=== PATIENT | male | born 1980 | race African-American/Black ===

== ENCOUNTER 2019-06-11 19:25 | Emergency (ER) | payer SELFPAY ==
[2019-06-11] MEDS ORDERED: KETOROLAC TROMETHAMINE 60 MG/2 ML SDV IM ONE (22:46)
[2019-06-11] MEDS ORDERED: MORPHINE SULFATE 10 MG/ML INJ IM ONE (22:46)
[2019-06-11] MEDS ORDERED: DIAZEPAM 5 MG TABLET PO ONE (22:46)
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
[2019-06-11] MEDS ORDERED: LIDOCAINE 5% (700 MG) TRANSDERMAL ADH..PATCH TP SCH (23:00)
[2019-06-11] MEDS ORDERED: LIDOCAINE 5% (700 MG) TRANSDERMAL ADH..PATCH TP ONE (23:10)
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
[2019-06-12 00:17] VITALS: BP 156/95
[2019-06-12] MEDS ORDERED: LIDOCAINE 5% (700 MG) TRANSDERMAL ADH..PATCH TP SCH (10:00)
== END 2019-06-12 00:15 | disposition home or self-care (01) ==
LOC: ER 19:25
DX: M54.5 Low back pain (principal); G89.29 Other chronic pain; M54.9 Dorsalgia, unspecified; M79.10 Myalgia, unspecified site; V87.7XXA Person injured in collision between other specified motor vehicles (traffic), initial encounter
CPT/HCPCS: 99283; 96372; 72110; J1885; J2270

== ENCOUNTER 2019-07-06 19:59 | Emergency (ER) | payer OTHER ==
[2019-07-06] MEDS ORDERED: METHOCARBAMOL 750 MG TABLET PO ONE (21:46)
[2019-07-06] MEDS ORDERED: KETOROLAC TROMETHAMINE 60 MG/2 ML SDV IM ONE (21:46)
[2019-07-06] MEDS ORDERED: LIDOCAINE 5% (700 MG) TRANSDERMAL ADH..PATCH TP ONE (21:47)
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
[2019-07-06 22:12] VITALS: BP 138/66
== END 2019-07-06 22:12 | disposition home or self-care (01) ==
LOC: ER 19:59
DX: M54.5 Low back pain (principal); F17.200 Nicotine dependence, unspecified, uncomplicated
CPT/HCPCS: J1885; J3490

== ENCOUNTER 2019-07-27 23:28 | Emergency (ER) | payer OTHER ==
[2019-07-28] MEDS ORDERED: ONDANSETRON 4 MG TAB.RAPDIS PO ONE (02:29)
--- NOTE | 2019-07-28 02:32 | ER Document Report ---
HPI - HPI Time Seen by Provider: 07/28/19 02:22 Pain Level: 3 Context: Patient is a 38-year-old male that comes emergency department for chief complaint of nausea, an episode of vomiting, and generalized weakness and body aches since yesterday. He denies sore throat, difficulty breathing, cough, headache, abdominal pain. He states his kids were diagnosed with viral gastroenteritis and he thinks he might of gotten it from them. He denies recent antibiotics, suspicious foods, foreign travel. He smokes, denies any daily medications, denies any past medical history otherwise. - CONSTITUTIONAL Constitutional: DENIES: Fever, Chills - EENT EENT: DENIES: Sore Throat, Ear Pain, Eye problems - NEURO Neurology: DENIES: Headache, Weakness, Vision blurred, Dizzinesss / Vertigo - CARDIOVASCULAR Cardiovascular: DENIES: Chest pain - RESPIRATORY Respiratory: DENIES: Trouble Breathing, Coughing - GASTROINTESTINAL Gastrointestinal: DENIES: Abdominal Pain, Black / Bloody Stools - URINARY Urinary: DENIES: Dysuria, Urgency, Frequency - MUSCULOSKELETAL Musculoskeletal: DENIES: Extremity pain Past Medical History - General Information source: Patient - Social History Smoking Status: Current Every Day Smoker Frequency of alcohol use: None Drug Abuse: None Lives with: Family Family History: Reviewed & Not Pertinent Patient has suicidal ideation: No Patient has homicidal ideation: No Renal/ Medical History: Denies: Hx Peritoneal Dialysis - Immunizations Immunizations up to date: Yes Hx Diphtheria, Pertussis, Tetanus Vaccination: Yes Vertical Provider Document - CONSTITUTIONAL General Appearance: WD/WN, No Apparent Distress - INFECTION CONTROL TRAVEL OUTSIDE OF THE [place] IN LAST 30 DAYS: No - HEENT HEENT: Atraumatic, Normal ENT Exam, Normocephalic - NECK Neck: Normal Inspection - RESPIRATORY Respiratory: Breath Sounds Normal, No Respiratory Distress - CARDIOVASCULAR Cardiovascular: Regular Rate, Regular Rhythm - GI/ABDOMEN Gastrointestinal: Abdomen Soft, Abdomen Non-Tender. negative: Abdomen Tender - BACK Back: Normal Inspection - MUSCULOSKELETAL/EXTREMETIES Musculoskeletal/Extremeties: MAEW, FROM, Non-Tender - NEURO Level of Consciousness: Awake, Alert, Appropriate Motor/Sensory: No Motor Deficit, No Sensory Deficit - DERM Integumentary: Warm, Dry, No Rash Course - Re-evaluation Re-evalutation: Abdomen soft and benign. Patient well-appearing. Patient has multiple sick contacts. Accu-Chek is unremarkable. Very low suspicion of emergent underlying illness or acute abdomen. Discussed with patient, provided with nausea medication, discussed expectations, follow-up, and return precautions. Patient and family state understanding and agreement. - Vital Signs Vital signs: Temp Pulse Resp BP Pulse Ox 98.7 F 50 L 16 117/73 100 07/27/19 23:45 07/28/19 01:20 07/28/19 01:20 07/28/19 01:20 07/28/19 01:20 Discharge - Discharge Clinical Impression: Generalized weakness Vomiting Qualifiers: Vomiting type: unspecified Vomiting Intractability: non-intractable Nausea presence: with nausea Qualified Code(s): R11.2 - Nausea with vomiting, unspecified Disposition: HOME, SELF-CARE Additional Instructions: Your evaluation is most consistent with a viral gastroenteritis. This resolved with time. Take Phenergan for nausea if needed, start with bland food, drink plenty fluids and rest. Follow-up with primary care. Come back if you worsen including developing abdominal pain, uncontrolled vomiting, or any other concerning or worsening symptoms. Prescriptions: Promethazine HCl [Phenergan 25 mg Tablet] 25 mg PO Q6H PRN #15 tablet PRN Reason: Forms: Return to Work
[2019-07-28 03:10] VITALS: BP 133/89
== END 2019-07-28 03:06 | disposition home or self-care (01) ==
LOC: ER 23:28
DX: R53.1 Weakness (principal); R11.2 Nausea with vomiting, unspecified; M79.10 Myalgia, unspecified site; R51 Headache; R10.9 Unspecified abdominal pain; F17.200 Nicotine dependence, unspecified, uncomplicated
CPT/HCPCS: 82962; S0119; 99283

== ENCOUNTER 2019-09-02 22:35 | Emergency (ER) | payer SELFPAY ==
[2019-09-02 22:47] VITALS: BP 143/77
--- NOTE | 2019-09-02 23:12 | RADIOLOGY REPORT (SQ) ---
EXAM DESCRIPTION: XR SHOULDER 2 OR MORE VIEWS COMPLETED DATE/TME: 09/02/2019 22:38 CLINICAL HISTORY: 38 years, Male, bone tenderness COMPARISON: None. NUMBER OF VIEWS: 3 TECHNIQUE: 3 views right shoulder LIMITATIONS: None. FINDINGS: Negative for fracture or dislocation. Soft tissues are unremarkable IMPRESSION: Negative exam copyright 2011 [employer]- All Rights Reserved
--- NOTE | 2019-09-02 23:25 | ER Document Report ---
HPI - HPI Time Seen by Provider: 09/02/19 23:13 Pain Level: 4 Notes: Patient is a 38-year-old male with no significant past medical history presents complaining of muscle pain to his right trapezius area over the past couple days. Patient states that it feels like there is a knot in the one area. Patient states on occasion he will feel a twitch. Patient states that his work does involve him using his arms constantly. Pain does not radiate. No other injury. He has no other concerns or complaints, but is requesting a work note. Denies any headache, fever, head injury, neck pain, URI, sore throat, chest pain, palpitations, syncope, cough, shortness of breath, wheeze, dyspnea, abdominal pain, nausea/vomiting/diarrhea, urinary retention, dysuria, hematuria, loss of control of bowel or bladder, numbness/tingling, saddle anesthesia, muscle paralysis/weakness, or rash. - ROS Systems Reviewed and Negative: Yes All other systems reviewed and negative Past Medical History - Social History Smoking Status: Current Every Day Smoker Frequency of alcohol use: None Drug Abuse: None Family History: Reviewed & Not Pertinent Patient has suicidal ideation: No Patient has homicidal ideation: No Renal/ Medical History: Denies: Hx Peritoneal Dialysis - Immunizations Immunizations up to date: Yes Hx Diphtheria, Pertussis, Tetanus Vaccination: Yes Vertical Provider Document - CONSTITUTIONAL Agree With Documented VS: Yes Notes: PHYSICAL EXAMINATION: GENERAL: Well-appearing, well-nourished and in no acute distress. NECK: Normal range of motion, supple without lymphadenopathy. Non-tender. Spurling negative. No rigidity/meningismus. LUNGS: Breath sounds clear to auscultation bilaterally and equal. No wheezes rales or rhonchi. HEART: Regular rate and rhythm without murmurs, rubs, gallops. Musculoskeletal: Rt shoulder: FROM to passive/active. Strength 5+/5 due to pain. Neg impingement test. Neg speed test. No crepitus. No erythema or warmth. No deformity or ecchymosis. RC intact 5+/5 strength. + reproducible tenderness rt mid trapezius muscle with trigger point noted. + mild spasm. Reproduces symptoms described. No bony tenderness. Extremities: No cyanosis, clubbing, or edema b/l. Peripheral pulses 2+. Capillary refill less than 3 seconds. NEUROLOGICAL: Normal speech, normal gait. Normal sensory, motor exams PSYCH: Normal mood, normal affect. SKIN: Warm, Dry, normal turgor, no rashes or lesions noted. - INFECTION CONTROL TRAVEL OUTSIDE OF THE [place] IN LAST 30 DAYS: No Course - Re-evaluation Re-evalutation: 09/02/19 23:23 Patient is an afebrile, well-hydrated, 38-year-old male who presents to the ED with Rt trapezius muscle spasm/trigger point. Vitals are acceptable without any significant tachycardia, tachypnea, or hypoxia. PE is otherwise unremarkable for any neurovascular compromise, obvious tendon/ligament rupture, obvious fracture/dislocation, septic joint. X-ray was unremarkable for any acute pathology. Patient declined any Tylenol or ice. Patient is nontoxic-appearing. No other labs or imaging warranted at this time based on H&P. Rx for robaxin at night time. Conservative measures otherwise for symptoms. Recheck with your PCM in 3-5 days. Consider consult orthopedics. Return to the ED with any worsening/concerning symptoms otherwise as reviewed in discharge. Patient is in agreement. - Vital Signs Vital signs: Temp Pulse Resp BP Pulse Ox 98.5 F 57 L 18 143/77 H 100 09/02/19 22:45 09/02/19 22:45 09/02/19 22:45 09/02/19 22:45 09/02/19 22:45 Discharge - Discharge Clinical Impression: Trapezius muscle spasm Condition: Stable Disposition: HOME, SELF-CARE Additional Instructions: Rest, Ice, Compression, Elevation Tylenol/ibuprofen as needed Light stretches daily Strength exercises as able Moist heat and massage may help F/u with your PCP in 3-5 days for a recheck Consider consult(s) with Orthopedics/physical therapy for ongoing/worsening symptoms Return to the ED with any worsening symptoms and/or development of fever, headache, chest pain, palpitations, syncope, shortness of breath, trouble breathing, abdominal pain, n/v/d, muscle weakness/paralysis, numbness/tingling, swelling, redness, or other worsening symptoms that are concerning to you. Prescriptions: Methocarbamol [Robaxin 750 mg Tablet] 750 mg PO QHS #10 tablet Forms: Elevated Blood Pressure, Smoking Cessation Education, Return to Work Referrals: SELLERS,EDGARDO W JR, DO [ACTIVE PROVISIONAL STAFF] - Follow up as needed
== END 2019-09-02 23:32 | disposition home or self-care (01) ==
LOC: ER 22:35
DX: M62.830 Muscle spasm of back (principal); M54.6 Pain in thoracic spine; F17.200 Nicotine dependence, unspecified, uncomplicated

== ENCOUNTER 2019-09-04 04:38 | Emergency (ER) | payer SELFPAY ==
[2019-09-04 04:50] VITALS: BP 144/84
== END 2019-09-04 07:00 | disposition left against medical advice (07) ==
LOC: ER 04:38
DX: Z53.21 Procedure and treatment not carried out due to patient leaving prior to being seen by health care provider (principal)

== ENCOUNTER 2019-12-11 18:12 | Emergency (ER) | payer MEDICAID ==
[2019-12-11] MEDS ORDERED: KETOROLAC TROMETHAMINE INJ/PF 30 MG/1 ML SDV IV ONE (18:23)
[2019-12-11] MEDS ORDERED: NORMAL SALINE 1000 ML 1,000 ML IV ONE (18:23)
--- NOTE | 2019-12-11 18:24 | ER Document Report ---
ED Medical Screen (RME) - General Chief Complaint: Flank Pain Stated Complaint: FLANK PAIN Time Seen by Provider: 12/11/19 18:21 TRAVEL OUTSIDE OF THE [place] IN LAST 30 DAYS: No - HPI Notes: 12/11/19 18:24 Patient is a 39-year-old male no significant past medical history presents complaining of right back pain that radiates around into his groin with some discomfort with urination has been ongoing for the past couple days. No fever, chest pain, or shortness of breath. No vomiting or diarrhea. I have treated and performed a rapid initial assessment of this patient. A comprehensive ED assessment and evaluation of the patient, analysis of test results and completion of medical decision making process will be conducted by additional ED providers. PHYSICAL EXAMINATION: GENERAL: Well-appearing, well-nourished and in no acute distress. A&Ox4. Answers questions appropriately. - Related Data Allergies/Adverse Reactions: No Known Allergies Allergy (Verified 12/11/19 18:20) Past Medical History Renal/ Medical History: Denies: Hx Peritoneal Dialysis - Immunizations Immunizations up to date: Yes Hx Diphtheria, Pertussis, Tetanus Vaccination: Yes Physical Exam - Vital signs Vitals: Temp Pulse Resp BP Pulse Ox 98.5 F 69 16 143/78 H 100 12/11/19 18:16 12/11/19 18:16 12/11/19 18:16 12/11/19 18:16 12/11/19 18:16 Course - Vital Signs Vital signs: Temp Pulse Resp BP Pulse Ox 98.5 F 69 16 143/78 H 100 12/11/19 18:16 12/11/19 18:16 12/11/19 18:16 12/11/19 18:16 12/11/19 18:16
--- NOTE | 2019-12-11 18:56 | ER Document Report ---
ED GI/ - General Chief Complaint: Flank Pain Stated Complaint: FLANK PAIN Time Seen by Provider: 12/11/19 18:21 Primary Care Provider: [facility] [Provider Group] - Follow up in 3-5 days JENSEN CHACON MD [NO LOCAL MD] - Follow up in 3-5 days TRAVEL OUTSIDE OF THE [place] IN LAST 30 DAYS: No - HPI Notes: 12/11/19 19:12 39-year-old male to the emergency department with complaints of right-sided back pain that radiates into his groin and into the right testicle for the past 2 to 3 days. He states he is not had any nausea or vomiting. He states that when he urinates he feels "pulling". He denies any hematuria. He does not have a history of kidney stones. He denies any penile discharge. He states has not had a fever. He states that when he takes a big deep breath that increases the pain in his back. He denies any other symptoms. - Related Data Allergies/Adverse Reactions: No Known Allergies Allergy (Verified 12/11/19 18:20) Past Medical History - General Information source: Patient - Social History Smoking Status: Current Every Day Smoker Chew tobacco use (# tins/day): No Frequency of alcohol use: Occasional Drug Abuse: Marijuana Family History: Reviewed & Not Pertinent Patient has suicidal ideation: No Patient has homicidal ideation: No Renal/ Medical History: Denies: Hx Peritoneal Dialysis - Immunizations Immunizations up to date: Yes Hx Diphtheria, Pertussis, Tetanus Vaccination: Yes Review of Systems - Review of Systems Constitutional: denies: Chills, Fever EENT: No symptoms reported Cardiovascular: denies: Chest pain, Palpitations, Orthopnea, Dyspnea, Syncope Respiratory: denies: Cough, Short of breath Gastrointestinal: Abdominal pain. denies: Diarrhea, Nausea, Vomiting Genitourinary: See HPI, Frequency, Flank pain Male Genitourinary: See HPI, Testicular pain Musculoskeletal: No symptoms reported Skin: No symptoms reported Hematologic/Lymphatic: No symptoms reported Neurological/Psychological: No symptoms reported -: Yes All other systems reviewed and negative Physical Exam - Vital signs Vitals: Temp Pulse Resp BP Pulse Ox 98.5 F 69 16 143/78 H 100 12/11/19 18:16 12/11/19 18:16 12/11/19 18:16 12/11/19 18:16 12/11/19 18:16 Interpretation: Normal - General General appearance: Appears well, Alert In distress: Mild Notes: mild pain discomfort - HEENT Head: Normocephalic, Atraumatic Eyes: Normal Pupils: PERRL - Respiratory Respiratory status: No respiratory distress Chest status: Nontender Breath sounds: Normal. No: Rales, Rhonchi, Wheezing Chest palpation: Normal - Cardiovascular Rhythm: Regular Heart sounds: Normal auscultation Murmur: No Course - Re-evaluation Re-evalutation: Impression: Right flank pain, right testicular pain, left hydrocele. CT with no kidney stone or any other abnormalities. Scrotal US with no evidence for testicular torsion, mass or epipdymyitis. UA is reassuring. PAtient feeling better after Toradol. Will discharge home with pain meds and encourage outpatient follow up. Return if worse. Patient agrees with the plan. - Vital Signs Vital signs: Temp Pulse Resp BP Pulse Ox 98.5 F 58 L 18 139/83 H 100 12/11/19 22:04 12/11/19 22:04 12/11/19 22:04 12/11/19 22:04 12/11/19 22:04 - Laboratory Result Diagrams: 12/11/19 18:50 12/11/19 19:37 Laboratory results interpreted by me: 12/11/19 12/11/19 12/11/19 18:50 19:37 20:33 RDW 14.1 H Chloride 108 H Glucose 66 L Chlamydia DNA (PCR) DETECTED H Discharge - Discharge Clinical Impression: Right flank pain, Right testicular pain, Left hydrocele Condition: Stable Disposition: HOME, SELF-CARE Instructions: Flank Pain ([facility]) Additional Instructions: Take medicines as prescribed. REturn if worsening symptoms. No kidney stone was seen on CT scan. You have a water cyst on your left testicle which is called a hydrocele. Follow up with urology for this. FOllow up with primary care. Prescriptions: Ondansetron [Zofran Odt 4 mg Tablet] 1 - 2 tab PO Q4HP PRN #10 tab.rapdis PRN Reason: Tramadol HCl [Ultram] 50 mg PO Q8H #10 tablet Forms: Return to Work Referrals: [facility] [Provider Group] - Follow up in 3-5 days JENSEN CHACON MD [NO LOCAL MD] - Follow up in 3-5 days
[2019-12-11 19:13] LABS: HEMATOCRIT 42.9 % (37.9-51.0); HEMOGLOBIN 14.3 g/dL (13.5-17.0); MEAN CORPUSCULAR HEMOGLOBIN 31.8 pg (27.0-33.4); MEAN CORPUSCULAR HGB CONC 33.3 g/dL (32.0-36.0); MEAN CORPUSCULAR VOLUME 96 fl (80-97); PLATELET COUNT 174 10^3/uL (150-450); RED BLOOD COUNT 4.48 10^6/uL (4.35-5.55); RED CELL DISTRIBUTION WIDTH 14.1 % (11.5-14.0); WHITE BLOOD COUNT 7.2 10^3/uL (4.0-10.5)
[2019-12-11 19:31] LABS: ABSOLUTE LYMPHOCYTES# (MANUAL) 2.6 10^3/uL (0.5-4.7); ABSOLUTE MONOCYTES # (MANUAL) 0.6 10^3/uL (0.1-1.4); BASOPHILS % (MANUAL) 0 % (0-2); EOSINOPHILS % (MANUAL) 3 % (0-6); LYMPHOCYTES % (MANUAL) 34 % (13-45); MONOCYTES % (MANUAL) 9 % (3-13); SEGMENTED NEUTROPHILS % (MAN) 52 % (42-78); TOTAL CELLS COUNTED 100
[2019-12-11 19:32] LABS: ANISOCYTOSIS SLIGHT; PLATELET COMMENT ADEQUATE
--- NOTE | 2019-12-11 19:45 | RADIOLOGY REPORT (SQ) ---
EXAM DESCRIPTION: CT ABD/PELVIS NO ORAL OR IV COMPLETED DATE/TIME: 12/11/2019 7:29 pm REASON FOR STUDY: Rt flank pain COMPARISON: None. TECHNIQUE: CT scan of the abdomen and pelvis performed without intravenous or oral contrast. Images reviewed with lung, soft tissue, and bone windows. Reconstructed coronal and sagittal MPR images revi ewed. All images stored on PACS. All CT scanners at this facility use dose modulation, iterative reconstruction, and/or weight based d osing when appropriate to reduce radiation dose to as low as reasonably achievable (ALARA). [facility]: Dose Right [facility]: CareDose [facility]: Dose Right [facility]: Teradose 4D [facility]: Smart Yotpo RADIATION DOSE: CT Rad equipment meets quality standard of care and radiation dose reduction techniq ues were employed. CTDIvol: 5.7 mGy. DLP: 291 mGy-cm.mGy. LIMITATIONS: None. FINDINGS: LOWER CHEST: No significant findings. No nodules or infiltrates. NON-CONTRASTED LIVER, SPLEEN, ADRENALS: Evaluation limited by lack of IV contrast. No identified sign ificant masses. PANCREAS: No masses. No peripancreatic inflammatory changes. GALLBLADDER: No calcified stones. No inflammatory changes to suggest cholecystitis. RIGHT KIDNEY AND URETER: No cysts identified. No solid masses. No calcified stones. No hydronephrosis or hydroureter. LEFT KIDNEY AND URETER: No cysts identified. No solid masses. No calcified stones. No hydronephrosis or hydroureter. AORTA AND RETROPERITONEUM: No aneurysm. No retroperitoneal masses or adenopathy. BOWEL AND PERITONEAL CAVITY: No obvious masses or inflammatory changes. No free fluid. APPENDIX: Normal. PELVIS, BLADDER, AND ABDOMINAL WALL:No abnormal masses. No free fluid. Unremarkable bladder. BONES: No acute findings. OTHER: No other significant finding. IMPRESSION: NO ACUTE FINDINGS. TECHNICAL DOCUMENTATION: JOB ID: [id number] Quality ID # [id number]: Final reports with documentation of one or more dose reduction techniques (e.g., Au tomated exposure control, adjustment of the mA and/or kV according to patient size, use of iterative reconstruction technique) 2010 [employer]- All Rights Reserved Reading location - IP/workstation name: [email or web address]
[2019-12-11 20:37] LABS: ALBUMIN 3.7 g/dL (3.5-5.0); ALKALINE PHOSPHATASE 45 U/L (38-126); ASPARTATE AMINO TRANSFERASE 24 U/L (17-59); BILIRUBIN,TOTAL 0.4 mg/dL (0.2-1.3); BLOOD UREA NITROGEN 16 mg/dL (7-20); CALCIUM 8.5 mg/dL (8.4-10.2); POTASSIUM 3.9 mmol/L (3.6-5.0); TOTAL PROTEIN 6.3 g/dL (6.3-8.2)
[2019-12-11 20:42] LABS: ANION GAP 5 (5-19); CARBON DIOXIDE 29 mmol/L (22-30); CHLORIDE 108 mmol/L (98-107)
[2019-12-11 20:44] LABS: GLUCOSE 66 mg/dL (75-110)
[2019-12-11 20:56] LABS: APPEARANCE,URINE SLIGHTLY-CLOUDY; BILIRUBIN,URINE NEGATIVE (NEGATIVE); COLOR,URINE YELLOW; GLUCOSE, URINE NEGATIVE (NEGATIVE); KETONES,URINE NEGATIVE (NEGATIVE); PROTEIN,URINE NEGATIVE (NEGATIVE); URINE SPECIFIC GRAVITY 1.025; UROBILINOGEN,URINE NEGATIVE mg/dL (<2.0)
--- NOTE | 2019-12-11 21:33 | RADIOLOGY REPORT (SQ) ---
EXAM DESCRIPTION: US SCROTUM COMPLETED DATE/TME: 12/11/2019 18:55 CLINICAL HISTORY: 39 years, Male, right testicular pain COMPARISON: None. TECHNIQUE: LIMITATIONS: None. FINDINGS: There is a small left-sided hydrocele. There are no focal masses within the testicles. No evidence of testicular torsion. No evidence of epididymitis. IMPRESSION: Small left hydrocele. copyright 2010 [employer]- All Rights Reserved
[2019-12-11 22:06] VITALS: BP 139/83
[2019-12-11 22:18] LABS: CHLAM PCR DETECTED (NOT DETECT)
== END 2019-12-11 22:04 | disposition home or self-care (01) ==
LOC: ER 18:12
DX: R10.9 Unspecified abdominal pain (principal); N50.811 Right testicular pain; N43.3 Hydrocele, unspecified; M54.9 Dorsalgia, unspecified; F17.200 Nicotine dependence, unspecified, uncomplicated; R35.0 Frequency of micturition; F12.10 Cannabis abuse, uncomplicated
CPT/HCPCS: 36415; 85025; 80053; 81001; 87491; 87591; 76870; 93976; 74176; J1885; J7030; 96361; 96374; 99284